=== PATIENT | female | born 1980 | race American Indian/Alaskan Native ===

== ENCOUNTER 2018-02-04 09:31 | Emergency (ER) | payer OTHER ==
[2018-02-04 11:29] LABS: Basophils % (Auto) 0.3 % (0.0-1.8); Eosinophils % (Auto) 0.2 % (0.0-4.3); Hematocrit 40.2 % (30.3-42.9); Hemoglobin 13.3 gm/dl (10.1-14.3); Lymphocytes # (Auto) 1.2 K/mm3 (1.2-5.4); Lymphocytes % (Auto) 8.4 % (13.4-35.0); Mean Corpuscular HGB Conc 33 % (30-34); Mean Corpuscular Hemoglobin 30 pg (28-32); Mean Corpuscular Volume 90 fl (79-97); Monocytes # (Auto) 0.6 K/mm3 (0.0-0.8); Monocytes % (Auto) 4.4 % (0.0-7.3); Platelet Count 283 K/mm3 (140-440); Red Blood Count 4.49 M/mm3 (3.65-5.03); Red Cell Distribution Width 14.2 % (13.2-15.2)
[2018-02-04 12:02] LABS: Alanine Aminotransferase 10 units/L (7-56); BUN/Creatinine Ratio 21; Blood Urea Nitrogen 15 mg/dL (7-17); Calcium 9.3 mg/dL (8.4-10.2); Hemolysis Index 10; Lipase 24 units/L (13-60)
[2018-02-04 12:05] LABS: Bilirubin,Urine NEG (Negative); Blood,Urine MOD (Negative); Color,Urine Yellow (Yellow); Mucus,Urine FEW /HPF; Urobilinogen,Urine < 2.0 mg/dL (<2.0)
[2018-02-04 12:06] LABS: RBC,Urine > 182.0 /HPF (0.0-6.0)
--- NOTE | 2018-02-04 13:12 | Emergency Department Report ---
Vomiting/Diarrhea - HPI Chief Complaint: Nausea/Vomiting/Diarrhea Stated Complaint: NAUSEA/VOMITING/WEAKNESS Time Seen by Provider: 02/04/18 12:23 Duration: 1 Day Severity: moderate Nausea/Vomiting Severity: Moderate Diarrhea Severity: None Pain Location: Generalized Pain Severity: Mild Symptoms: Yes Able to Tolerate Fluids, Yes Recent Unusual Foods (ate chicken at a restaurant in [place], [place], seasoned different from usual), Yes Contacts w/ Similar Symptoms (she took friend to the hospital yesterday with similar symptoms), No Watery Diarrhea, No Bloody diarrhea, No Fever, No Recent Untreated Water, No Recent use of Antibiotics, No Family w/ Similar Symptoms, No Rash, No Hematuria, No Recent URI Symptoms Other History: This is a 37 y.o. female that presents with dizziness, fatigue, and nausea & vomiting 1 day. Patient is currently not having nausea or vomiting. States she feel very dizzy when she stand or lean forward. States she took friend to the ER in [place], [place] yesterday with similar symptoms but she is and didn't think anything of that. She drunk water this morning and couldn't keep it down. Denies recent travel, chest pain, SOB, difficulty breathing, and fever. ED Review of Systems ROS: Stated complaint: NAUSEA/VOMITING/WEAKNESS Other details as noted in HPI Constitutional: denies: chills, fever ENT: denies: ear pain, throat pain, epistaxis, congestion Respiratory: denies: cough, shortness of breath, wheezing Cardiovascular: denies: chest pain, palpitations Gastrointestinal: nausea, vomiting. denies: abdominal pain, diarrhea Neurological: vertigo. denies: headache, weakness, paresthesias Psychiatric: denies: anxiety, depression ED Past Medical Hx - Past Medical History Previous Medical History?: Yes Additional medical history: vaginal delivery x 6 - Surgical History Past Surgical History?: No - Social History Smoking Status: Never Smoker Substance Use Type: None - Medications Home Medications: Home Medications Medication Instructions Recorded Confirmed Last Taken Type Ciprofloxacin HCl [Cipro] 500 mg PO BID 7 Days #14 tablet 02/04/18 Unknown Rx Metoclopramide HCl [Metoclopramide 5 mg PO Q6HR PRN #15 tab 02/04/18 Unknown Rx ODT TAB] Vomiting Diarrhea Exam - Exam General: Vital signs noted. No distress. Alert and acting appropriately. HEENT: Yes Moist Mucous Membranes, No Pharyngeal Erythema, No Pharyngeal Exudates, No Rhinorrhea, No Conjuctival Injection, No Frontal Tenderness, No Maxillary Tenderness Neck: No Adenopathy, No Rigidity Lungs: Yes Clear Lung Sounds, Yes Good Air Exchange, No Wheezes, No Stridor, No Cough, No Nasal Flaring, No Retractions, No Use of Accessory Muscles Heart exam: Regular: Yes, Murmur: No, Tachycardia: No Abdomen: Tenderness: Yes (LUQ, negative rebound tenderness), Peritoneal Signs: No, Distention: No, Hyperactive Bowel sounds: No Skin exam: Rash: No, Edema: No, Normal turgor: Yes Neurologic: Alert and oriented, no deficits. Musculoskeletal: Unremarkable. ED Course Vital Signs 02/04/18 10:18 Temperature 97.5 F L Pulse Rate 68 Respiratory 20 Rate Blood Pressure 104/66 O2 Sat by Pulse 100 Oximetry ED Medical Decision Making - Lab Data Result diagrams: 02/04/18 11:05 02/04/18 11:08 - Radiology Data Radiology results: report reviewed CT of abdomen IMPRESSION: No acute process. Atrophic left kidney with associated cyst or urinoma. - Medical Decision Making 37 y.o. female that presents with dizziness and nausea and vomiting for 1 day. Patient examined by me, slightly distressed. Blood pressure low. CT of abdomen and pelvis obtained. Patient informed of No acute process. Atrophic left kidney with associated cyst or urinoma. 2. Normal pelvis. Obtained CBC, UA, HCG & CMP, WBC elevated. Given normal saline IV 1L bolus, levaquin 500 mg po once in ER. Start cipro and metoclopramide for gastroenteritis. Patient doesn't have PCP. Referred to [facility]. Discharged home. Follow up with [facility] in 48-72 hours. Critical care attestation.: If time is entered above; I have spent that time in minutes in the direct care of this critically ill patient, excluding procedure time. ED Disposition Clinical Impression: Acute gastroenteritis Nausea & vomiting Qualifiers: Vomiting type: unspecified Vomiting Intractability: non-intractable Qualified Code(s): R11.2 - Nausea with vomiting, unspecified Disposition: DC-01 TO HOME OR SELFCARE Is pt being admited?: No Does the pt Need Aspirin: No Condition: Stable Instructions: Gastroenteritis (ED), Acute Nausea and Vomiting (ED) Additional Instructions: Take medication as prescribed. Increase fluid intake daily. Follow up with primary care provider or [facility] in 24-72 hours. Prescriptions: Ciprofloxacin HCl [Cipro] 500 mg PO BID 7 Days #14 tablet Metoclopramide HCl [Metoclopramide ODT TAB] 5 mg PO Q6HR PRN #15 tab PRN Reason: Nausea And Vomiting Referrals: [facility] [Outside] - 3-5 Days [facility] [Outside] - 3-[address] [facility] [Outside] - 3-5 Days Time of Disposition: 17:22 Print Language: PORTUGUESE
[2018-02-04 13:24] LABS: HCG Qualitative,Urine Negative (Negative)
--- NOTE | 2018-02-04 14:31 | Cat Scan Report ---
CT ABDOMEN PELVIS WITHOUT CONTRAST: HISTORY: Left upper quadrant pain, nausea and vomiting. COMPARISON: none. TECHNIQUE: Helical CT in 1.25mm intervals without IV contrast. Sagittal and coronal reconstructions. FINDINGS: Lung bases: Normal. Liver: Normal. Biliary system: Normal. Pancreas: Normal. Spleen: Normal. Kidneys/ureters/bladder: The left kidney is atrophic measuring only 4-5 cm in length. There appears to be a large exophytic cyst or urinoma from the inferior left kidney projecting into the left paracolic gutter measures approximately 3.5 x 8.5 cm. The right kidney, right collecting system and bladder are unremarkable. Adrenal glands: Normal. Aorta: Normal. Intestines: Normal. Appendix: Normal. Pelvic viscera: Normal. Ascites: Trace pelvic fluid which is probably physiologic. Adenopathy: None. Musculoskeletal: Normal. IMPRESSION: No acute process. Atrophic left kidney with associated cyst or urinoma.
[2018-02-04] MEDS ORDERED: NACL 0.9% 1000 ML 1,000 ML IV ONE (14:57)
[2018-02-04 16:12] VITALS: BP 101/53
[2018-02-04] MEDS ORDERED: LEVAQUIN PO ONE (17:11)
== END 2018-02-04 17:37 | disposition home or self-care (01) ==
LOC: ED 09:31
DX: K52.9 Noninfective gastroenteritis and colitis, unspecified (principal); R42 Dizziness and giddiness
CPT/HCPCS: 36415; 74176; 80053; 81001; 81025; 83690; 85025; 96360; 99284; J7030

== ENCOUNTER 2018-03-22 15:21 | Emergency (ER) | payer OTHER ==
[2018-03-22 15:29] VITALS: BP 106/70
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
== END 2018-03-22 18:07 | disposition home or self-care (01) ==
LOC: ED 15:21
DX: S39.012A Strain of muscle, fascia and tendon of lower back, initial encounter (principal); V87.7XXA Person injured in collision between other specified motor vehicles (traffic), initial encounter; Z98.51 Tubal ligation status; Y93.89 Activity, other specified; Y92.89 Other specified places as the place of occurrence of the external cause; Y99.8 Other external cause status
CPT/HCPCS: 99282